=== PATIENT | male | born 1995 | race Caucasian/White ===

== ENCOUNTER 2019-04-17 21:22 | Emergency (ER) | payer SELFPAY ==
[2019-04-17] MEDS: Sodium Chloride 0.9% 10 ML Syringe FLUSH PRN ×2 (22:35→23:44)
--- NOTE | 2019-04-17 22:39 | EDM.PDOC ---
<Samina Moore - Last Filed: 04/17/19 23:28> ED HPI GENERAL MEDICAL PROBLEM - General Chief Complaint: Abdominal Pain Stated Complaint: SIDE PAIN Time Seen by Provider: 04/17/19 22:13 Source of Information: Reports: Patient History Limitations: Reports: No Limitations - History of Present Illness INITIAL COMMENTS - FREE TEXT/NARRATIVE: 24-year-old male presents for evaluation and treatment of abdominal pain. Patient reports symptoms started 3 days ago with nausea, vomiting and diarrhea. He states that he developed pain periumbilical and has now located to the right lower quadrant. He reports a decreased appetite but has been eating; his last intake was around noon today, he had a burger. He reports of the abdomen is sore , rates the pain at its worse is a 4 out of 10. States that movement does not seem to worsen the pain. He reports the diarrhea has resolved but he still has nausea and vomiting. Reports subjective fevers and chills. He states he had dysuria several weeks ago but this resolved on its own. No hematuria. No back pain. No previous abdominal surgeries. Duration: Day(s): (3) Location: Reports: Abdomen Right Lower Abdominal Pain Score (Numeric/FACES): 4 - Related Data Allergies Allergy/AdvReac Type Severity Reaction Status Date / Time pollen extracts Allergy Difficulty Verified 04/17/19 21:36 Breathing Home Meds: Home Meds Ondansetron [Zofran] 4 mg BUCCAL Q6H PRN #10 tab 04/18/19 [Rx] Past Medical History - Past Surgical History Musculoskeletal Surgical History: Reports: Shoulder Surgery Social & Family History - Tobacco Use Smoking Status *Q: Former Smoker Used Tobacco, but Quit: Yes Month/Year Tobacco Last Used: 2 months ago - Caffeine Use Caffeine Use: Reports: Coffee, Energy Drinks, Soda, Tea - Recreational Drug Use Recreational Drug Use: No ED ROS GENERAL - Review of Systems Review Of Systems: See Below Constitutional: Reports: Fever (subjectie), Chills, Decreased Appetite GI/Abdominal: Reports: Abdominal Pain (RLQ), Diarrhea, Nausea, Vomiting. Denies : Black Stool : Reports: Dysuria. Denies: Hematuria Musculoskeletal: Denies: Back Pain ED EXAM, GI/ABD - Physical Exam Exam: See Below Exam Limited By: No Limitations General Appearance: Alert, WD/WN, No Apparent Distress, Thin Respiratory/Chest: No Respiratory Distress, Lungs Clear, Normal Breath Sounds Cardiovascular: Normal Peripheral Pulses, Regular Rate, Rhythm, No Murmur GI/Abdominal Exam: Normal Bowel Sounds, Soft, No Distention, Guarding, Tender ( at [place]urn[place] point), Other (negative psosas sign and obturator sign; no pain with heel percussion). No: Rigid Neurological: Alert, Oriented, Normal Cognition Psychiatric: Normal Affect, Normal Mood Skin Exam: Warm, Dry, Normal Color Course - Vital Signs Last Recorded V/S: Last Vital Signs Temp 36.9 C 04/17/19 21:28 Pulse 70 04/17/19 21:28 Resp 13 04/17/19 21:28 BP 135/73 04/17/19 21:28 Pulse Ox 100 04/17/19 21:28 - Orders/Labs/Meds Orders: Active Orders 24 hr Category Date Time Status Peripheral IV Care [RC] . DIRECTED Care 04/17/19 22:24 Active Abdomen Pelvis w Cont [CT] Stat Exams 04/17/19 22:21 Taken GC/CHLAMYDIA BY PCR [MOLEC] Stat Lab 04/17/19 23:45 Received Sodium Chloride 0.9% [Saline Flush] Med 04/17/19 22:24 Active 10 ml FLUSH ASDIRECTED PRN Peripheral IV Insertion Adult [OM.PC] Routine Oth 04/17/19 22:24 Ordered Medication Orders Sodium Chloride (Saline Flush) 10 ml FLUSH ASDIRECTED PRN PRN Reason: Keep Vein Open Last Admin: 04/17/19 23:44 Dose: 10 ml Admin: 04/17/19 22:35 Dose: 10 ml Labs: Laboratory Tests 04/17/19 04/17/19 04/17/19 Range/Units 22:30 22:30 23:45 WBC 6.82 (4.23-9.07) K/mm3 RBC 5.03 (4.63-6.08) M/mm3 Hgb 14.3 (13.7-17.5) gm/L Hct 42.5 (40.1-51.0) % MCV 84.5 (79.0-92.2) fl MCH 28.4 (25.7-32.2) pg MCHC 33.6 (32.2-35.5) g/dl RDW Std Deviation 39.9 (35.1-43.9) fL Plt Count 272 (163-337) K/mm3 MPV 10.0 (9.4-12.3) fl Neutrophils % (Manual) 49 (40-60) % Band Neutrophils % 0 (0-10) % Lymphocytes % (Manual) 37 (20-40) % Atypical Lymphs % 8 % Monocytes % (Manual) 3 (2-10) % Eosinophils % (Manual) 2 (0.8-7.0) % Basophils % (Manual) 1 (0.2-1.2) Platelet Estimate Adequate Plt Morphology Comment Normal RBC Morph Comment Normal Sodium 141 (136-145) mEq/L Potassium 4.1 (3.5-5.1) mEq/L Chloride 103 (98-107) mEq/L Carbon Dioxide 28 (21-32) mEq/L Anion Gap 14.1 (5-15) BUN 17 (7-18) mg/dL Creatinine 1.1 (0.7-1.3) mg/dL Est Cr Clr Drug Dosing 107.68 mL/min Estimated GFR (MDRD) > 60 (>60) mL/min BUN/Creatinine Ratio 15.5 (14-18) Glucose 89 (74-106) mg/dL Calcium 9.2 (8.5-10.1) mg/dL Total Bilirubin 0.7 (0.2-1.0) mg/dL AST 23 (15-37) U/L ALT 25 (16-63) U/L Alkaline Phosphatase 68 (46-116) U/L C-Reactive Protein < 0.2 (<1.0) mg/dL Total Protein 7.7 (6.4-8.2) g/dl Albumin 4.2 (3.4-5.0) g/dl Globulin 3.5 gm/dL Albumin/Globulin Ratio 1.2 (1-2) Urine Color Yellow (Yellow) Urine Appearance Clear (Clear) Urine pH 6.5 (5.0-8.0) Ur Specific [place] 1.010 (1.005-1.030) Urine Protein Negative (Negative) Urine Glucose (UA) Negative (Negative) Urine Ketones Negative (Negative) Urine Occult Blood Negative (Negative) Urine Nitrite Negative (Negative) Urine Bilirubin Negative (Negative) Urine Urobilinogen 0.2 (0.2-1.0) Ur Leukocyte Esterase Negative (Negative) Urine RBC 0-5 (0-5) /hpf Urine WBC 0-5 (0-5) /hpf Ur Epithelial Cells Not seen (0-5) /hpf Urine Bacteria Few (FEW) /hpf Urine Mucus Not seen (FEW) /hpf Urinalysis Comment Meds: Medications Generic Name Dose Route Start Last Admin Trade Name Freq PRN Reason Stop Dose Admin Sodium Chloride 10 ml 04/17/19 22:24 04/17/19 23:44 Saline Flush FLUSH 10 ml ASDIRECTED PRN Administration Keep Vein Open Discontinued Medications Generic Name Dose Route Start Last Admin Trade Name Freq PRN Reason Stop Dose Admin Diatrizoate Meglum/Diatrizoate Sod 90 ml 04/17/19 23:23 04/17/19 23:41 Gastrografin 37% PO 04/17/19 23:24 90 ml ONETIME ONE Administration Iopamidol 100 ml 04/17/19 23:23 04/17/19 23:42 Isovue-300 (61%) IVPUSH 04/17/19 23:24 100 ml ONETIME ONE Administration - Re-Assessments/Exams Free Text/Narrative Re-Assessment/Exam: 04/17/19 23:30 Labs starting to return. Care transferred to Dr. Burns as it is end of my shift. Departure - Departure Disposition: Home, Self-Care 01 Clinical Impression: Gastroenteritis - Discharge Information Prescriptions: Ondansetron [Zofran] 4 mg BUCCAL Q6H PRN #10 tab PRN Reason: nausea or vomiting Instructions: Nausea and Vomiting, Adult, [id number] Referrals: PCP,Not In Area [Primary Care Provider] - Forms: ED Department Discharge Additional Instructions: Evaluation the emergency room tonight in regards to nausea vomiting diarrhea and gradually worsening right lower quadrant abdominal pain over the last day or so. Initial examination performed by physician assistant county engineer suggest a possibility of appendicitis developing. Lab work proved to be completely normal with a normal white count suggesting more of a viral infection. CT of the abdomen was completed with oral and IV contrast and it shows a normal appendix. It does not show any other serious pathology other than a small to moderate sized hiatal hernia where the food pipe joins onto the stomach. As mentioned more prone to reflux and heartburn. Vomiting first thing in the morning is usually due to alcohol use tonight before and has it causes an alcohol-induced gastritis. I have written a prescription for Zofran tablets that he can use on your tongue as needed for relief of nausea or vomiting he may want to contemplate picking up some Zantac 150 milligrams every night at bedtime to prevent heartburn and reflux and maybe eliminate vomiting first thing in the morning problems. Expect to loose diarrhea stools to occur after drinking the oral contrast. This will occur likely within the next hour to an hour and a half. Suggest clear fluids tomorrow such as Gatorade Powerade. When hungry try soda crackers and cookies first. Then advance to toast. If tolerated may have soup such as turkey rice chicken noodle. Stay with from all-day products and no apple juice or grape juice until stools are formed backup. <Armnad Burns - Last Filed: 04/18/19 00:30> Course - Re-Assessments/Exams Free Text/Narrative Re-Assessment/Exam: 04/18/19 00:16 care has been assumed from physician assistant county engineer Samina Moore . Patient has completed CT of the abdomen and pelvis with IV normal contrast. The CT reveals a small to moderate sized hiatal hernia. Visualized portion of the lung bases are clear. The liver appears homogeneous with no intraductal dilatation. Gallbladder contains no calcified gallstones. Pancreas appears normal. Stomach is filled with contrast as is the duodenum. Both kidneys appear normal and ureters are draining normally. Contrast reaches the bladder on the delayed film. Adrenal glands appear normal. Is some increased stool particularly throughout the transverse colon. There is a few diverticuli scattered throughout the sigmoid and descending colon with no active diverticulitis appreciated. It's is seen and appears normal. Was contains no free fluid. Remarkable CT of the abdomen and pelvis. 04/18/19 00:19 Labs reveal a normal white count at 6.82 with 49% it feels and no band cells. Hemoglobin is 14.3 with hematocrit of 42.5. Pill count 272,000. Sodium 141 with a potassium of 4.1. Chloride 103 with a bicarbonate 28. And a gap is 14.1. BUN is 17 with a creatinine of 1.1. GFR is greater than 60. Glucose was 89. Calcium is 9.2. Liver function normal. C-reactive protein less than 0.2. Total protein 7.7 with an albumin fraction of 4.2. Lipase or amylase was not done. 04/18/19 00:27 West the findings of his labs and CT with the patient. At this point time he feels fine. It appears that he contracted a viral gastroenteritis to cause nausea vomiting diarrhea. He mentions that he vomits often quite readily first thing in the morning but is because he drinks a fair amount of alcohol on a daily basis. Patient advised at length in this regard. Advise Zantac 150 milligrams every night at bedtime as he does have a small to moderate hiatal hernia on CT. This makes her more prone to reflux. Departure - Departure Time of Disposition: 00:27 Condition: Fair - Discharge Information *PRESCRIPTION DRUG MONITORING PROGRAM REVIEWED*: Not Applicable *COPY OF PRESCRIPTION DRUG MONITORING REPORT IN PATIENT CHI: Not Applicable
[2019-04-17] MEDS ORDERED: Iopamidol 612 MG/ML 100 ML Bottle IVPUSH ONE (23:23)
[2019-04-17] MEDS ORDERED: Diatrizoate Meglumine/Diatrizoate Sodium 37% 120 ML Bottle PO ONE (23:23)
[2019-04-18 01:32] LABS: C. TRACHOMATIS BY PCR NOT DETECTED; N. GONORRHOEAE BY PCR NOT DETECTED
--- NOTE | 2019-04-18 07:18 | CT ---
CT abdomen and pelvis Technique: Multiple axial sections were obtained from above the dome of the diaphragm inferiorly through the pubic symphysis. Intravenous and oral contrast was utilized. Delayed images were also obtained through the bladder. Comparison: No prior abdominal imaging. Findings: Appendix is felt to be seen and is normal in size. No inflammatory change is seen around the cecum within the right lower quadrant. Visualized lung bases are clear. Liver and spleen appear within normal limits. Gallbladder contains no calcified gallstones. Adrenal glands show no nodule. Kidneys show symmetric contrast enhancement without hydronephrosis or mass. Pancreas appears within normal limits. Aorta shows no aneurysm. No retroperitoneal adenopathy or mesenteric abnormalities are seen. No pelvic mass or adenopathy is seen. Delayed images show contrast within distal ureters and bladder. Bone window settings were reviewed which show no acute osseous abnormality. Impression: 1. Nothing acute is appreciated on CT study of the abdomen and pelvis. Diagnostic code #1 I agree with preliminary report from [facility], finalized on 04/18/19, 12:56 AM Central Time
== END 2019-04-18 00:41 | disposition home or self-care (01) ==
LOC: JD.ED 21:22
DX: K52.9 Noninfective gastroenteritis and colitis, unspecified (principal); Z91.048 Other nonmedicinal substance allergy status; Z87.891 Personal history of nicotine dependence
CPT/HCPCS: 36415; 74177; 80053; 81001; 85007; 85027; 86140; 87491; 87591; 99284; Q9963; Q9967; 99283